=== PATIENT | male | born 1945 | race Caucasian/White ===

== ENCOUNTER 2021-09-05 15:38 | Inpatient (IN) ==
[2021-09-05 16:02] LABS: Basophils % 0.4 % (0.0-0.8); Eosinophils % 0.5 % (0.00-10.9); Hematocrit 50.4 VOL% (42.0-52.0); Hemoglobin 17.2 GM/DL (14.0-18.0); Immature Granulocytes % 0.4 %; Immature Granulocytes Absolute 0.03 #; Lymphocytes # 1.5 10*3/uL (1.4-4.0); Lymphocytes % 17.6 % (21.2-54.2); Mean Corpuscular HGB Conc 34.1 GM/DL (32-36); Mean Corpuscular Volume 88.3 FL (87-102); Mean Platelet Volume 10.2 FL (9.6-12.0); Neutrophils % 73.1 % (38.7-73.9); Platelet Count 307 T/CUMM (130-400); Red Blood Count 5.71 MC/CUMM (3.8-5.5); Red Cell Distribution Width 12.9 % (9.3-17.3); White Blood Count 8.3 T/CUMM (4-12)
[2021-09-05 16:13] LABS: INR 0.9; PT Patient Result 10.4 SECS (10.5-12.0); Partial Thromboplastin Time 25.1 SECS (23.8-32.1)
[2021-09-05] MEDS ORDERED: DILTIAZEM 50 MG/10 ML VIAL IV STA (16:23)
[2021-09-05 16:25] LABS: Bilirubin,Total 0.8 MG/DL (0.20-1.00); Calcium 9.8 MG/DL (8.5-10.1); Osmolality,Calculated 308.8 MOS/KG (273-304); Potassium 4.3 MMOL/L (3.5-5.1); Total Protein 7.5 G/DL (6.4-8.2)
[2021-09-05] MEDS ORDERED: INSULIN REGULAR 100 UNIT/ML IV STA ×2 (16:33→17:59)
[2021-09-05] MEDS ORDERED: SODIUM CHLORIDE 0.9% 1,000 ML IV STA (16:33)
[2021-09-05 16:54] LABS: ABG Base Excess -0.1 MMOL/L (-2.5-2.5); ABG HCO3 24.3 MMOL/L (20-26); ABG Oxygen Saturation 96.9 % (95-100); ABG PCO2 37.3 MM HG (35-48); ABG PH 7.417 (7.35-7.45); ABG PO2 87.4 MM HG (80-95); ABG TCO2 20.1 MMOL/L (23-27)
[2021-09-05] MEDS ORDERED: diphenhydrAMINE CAP 25 MG CAPSULE PO PRN (17:50)
[2021-09-05] MEDS ORDERED: guaiFENesin/DM ER 600-30 MG TABLET PO PRN (17:50)
[2021-09-05] MEDS ORDERED: GLUCAGON 1 MG VIAL IM PRN ×2 (17:50)
[2021-09-05] MEDS ORDERED: hydrALAZINE 20 MG/1 ML VIAL IV PRN (17:50)
[2021-09-05] MEDS ORDERED: DEXTROSE 50% 25 GM/50 ML VIAL IV PRN (17:50)
[2021-09-05] MEDS ORDERED: ZALEPLON 5 MG CAPSULE PO PRN (17:50)
[2021-09-05] MEDS ORDERED: NICOTINE 21 MG/24 HR PATCH TRANSDERM PRN (17:50)
[2021-09-05] MEDS ORDERED: MORPHINE 2 MG/1 ML SYRINGE IV PRN (17:50)
[2021-09-05] MEDS ORDERED: ACETAMINOPHEN 325 MG TABLET PO PRN (17:50)
[2021-09-05] MEDS ORDERED: DOCUSATE SODIUM 100 MG CAPSULE PO PRN (17:50)
[2021-09-05] MEDS ORDERED: ONDANSETRON 4 MG/2 ML VIAL IV PRN (17:50)
[2021-09-05] MEDS ORDERED: DEXTROSE 10% 25 GM/250 ML BAG IV PRN (17:56)
[2021-09-05] MEDS ORDERED: INSULIN GLARGINE 100 UNIT/ML SUBCUT STA (18:00)
[2021-09-05] MEDS ORDERED: carvediloL 3.125 MG TABLET PO STA (18:01)
[2021-09-05] MEDS: ALBUTEROL/IPRATROPIUM 3 ML NEB RESP TX SCH (20:45)
[2021-09-05] MEDS ORDERED: DILTIAZEM INJ 100 MG in SODIUM CHLORIDE 0.9% 100 ML IV SCH (21:00)
[2021-09-05] MEDS: INSULIN LISPRO 100 UNIT/ML SUBCUT SCH (21:07)
[2021-09-05] MEDS: ENOXAPARIN 80 MG/0.8 ML SYRINGE SUBCUT SCH (21:08)
[2021-09-06] MEDS: ALBUTEROL/IPRATROPIUM 3 ML NEB RESP TX SCH ×4 (00:58→19:50)
[2021-09-06 06:49] LABS: Basophils % 0.4 % (0.0-0.8); Eosinophils # 0.1 10*3/uL (0.0-0.87); Eosinophils % 1.4 % (0.00-10.9); Hematocrit 43.9 VOL% (42.0-52.0); Hemoglobin 14.6 GM/DL (14.0-18.0); Immature Granulocytes % 0.4 %; Immature Granulocytes Absolute 0.03 #; Lymphocytes # 2.5 10*3/uL (1.4-4.0); Lymphocytes % 33.4 % (21.2-54.2); Mean Corpuscular HGB Conc 33.3 GM/DL (32-36); Mean Corpuscular Volume 89.8 FL (87-102); Mean Platelet Volume 10.2 FL (9.6-12.0); Monocytes % 8.7 % (1.7-12.7); Neutrophils % 55.7 % (38.7-73.9); Platelet Count 259 T/CUMM (130-400); Red Blood Count 4.89 MC/CUMM (3.8-5.5); Red Cell Distribution Width 13.1 % (9.3-17.3); White Blood Count 7.4 T/CUMM (4-12)
[2021-09-06 07:09] LABS: Albumin 3.3 G/DL (3.4-5.0); Bilirubin,Total 0.6 MG/DL (0.20-1.00); Calcium 9.1 MG/DL (8.5-10.1); Osmolality,Calculated 281.7 MOS/KG (273-304); Potassium 3.6 MMOL/L (3.5-5.1); Total Protein 6.6 G/DL (6.4-8.2)
[2021-09-06 07:10] LABS: Risk Ratio 4.51; VLDL Cholesterol 20.4 MG/DL
[2021-09-06] MEDS: INSULIN LISPRO 100 UNIT/ML SUBCUT SCH ×4 (08:54→22:32)
[2021-09-06] MEDS: carvediloL 12.5 MG TABLET PO SCH ×2 (08:55→22:31)
[2021-09-06] MEDS: ASPIRIN EC 81 MG TABLET PO SCH (08:55)
[2021-09-06] MEDS: PANTOPRAZOLE 40 MG TABLET PO SCH (08:55)
[2021-09-06] MEDS: ENOXAPARIN 80 MG/0.8 ML SYRINGE SUBCUT SCH (08:55)
[2021-09-06] MEDS ORDERED: CLOPIDOGREL 75 MG TABLET PO SCH (09:00)
[2021-09-06] MEDS: ASCORBIC ACID 500 MG TABLET PO SCH ×2 (09:25→22:32)
[2021-09-06] MEDS ORDERED: SERTRALINE 25 MG TABLET PO ONE (10:45)
[2021-09-06] MEDS ORDERED: ATORVASTATIN 40 MG TABLET PO SCH (21:00)
[2021-09-06] MEDS ORDERED: SERTRALINE 25 MG TABLET PO SCH (21:00)
[2021-09-06] MEDS: APIXABAN 5 MG TABLET PO SCH (22:31)
[2021-09-07] MEDS: ALBUTEROL/IPRATROPIUM 3 ML NEB RESP TX SCH ×2 (00:52→07:10)
[2021-09-07 05:57] LABS: Basophils % 0.4 % (0.0-0.8); Eosinophils # 0.1 10*3/uL (0.0-0.87); Eosinophils % 0.8 % (0.00-10.9); Hematocrit 42.7 VOL% (42.0-52.0); Hemoglobin 14.5 GM/DL (14.0-18.0); Immature Granulocytes % 0.7 %; Immature Granulocytes Absolute 0.07 #; Lymphocytes # 1.5 10*3/uL (1.4-4.0); Lymphocytes % 14.1 % (21.2-54.2); Mean Corpuscular Volume 88.4 FL (87-102); Mean Platelet Volume 10.2 FL (9.6-12.0); Monocytes % 6.7 % (1.7-12.7); Neutrophils % 77.3 % (38.7-73.9); Platelet Count 244 T/CUMM (130-400); Red Blood Count 4.83 MC/CUMM (3.8-5.5); Red Cell Distribution Width 12.9 % (9.3-17.3); White Blood Count 10.7 T/CUMM (4-12)
[2021-09-07 06:24] LABS: Calcium 8.9 MG/DL (8.5-10.1); Osmolality,Calculated 280.5 MOS/KG (273-304); Potassium 3.5 MMOL/L (3.5-5.1)
[2021-09-07] MEDS: INSULIN LISPRO 100 UNIT/ML SUBCUT SCH ×2 (08:51→11:41)
[2021-09-07] MEDS: PANTOPRAZOLE 40 MG TABLET PO SCH (08:51)
[2021-09-07] MEDS: ASCORBIC ACID 500 MG TABLET PO SCH (08:51)
[2021-09-07] MEDS: carvediloL 12.5 MG TABLET PO SCH (08:51)
[2021-09-07] MEDS: APIXABAN 5 MG TABLET PO SCH (08:51)
[2021-09-07] MEDS: ASPIRIN EC 81 MG TABLET PO SCH (08:51)
[2021-09-07] MEDS ORDERED: GLIMEPIRIDE 2 MG TABLET PO SCH (09:00)
[2021-09-07] MEDS ORDERED: POTASSIUM CHLORIDE 20 MEQ TABLET PO ONE (10:06)
[2021-09-07 11:19] VITALS: BP 140/72
== END 2021-09-07 12:50 | disposition home or self-care (01) | DRG 310 ==
LOC: N.ED 15:38 → N.EDINP 17:50 → N.TELES 09-06 05:02
PROVIDERS: ADMIT Hospitalist; ATTEND Hospitalist